=== PATIENT | female | born 1980 | race Caucasian/White ===

== ENCOUNTER 2018-02-07 19:24 | Emergency (ER) | payer MEDICAID ==
[~2018-02-07] VITALS: Ht 160 cm; Wt 61.4 kg
[~2018-02-07 19:24] MED LIST: DSS100 PO; IBUP-2071 PO; PERCT PO; PREN1TAB80 PO
[2018-02-07 19:59] LABS: BASOPHILS % (AUTO) 0.5 % (0.0-2.0); EOSINOPHILS % (AUTO) 1.1 % (1.0-6.0); HEMATOCRIT 29.6 % (36-46); HEMOGLOBIN 9.4 g/dL (12.0-16.0); LYMPHOCYTES # (AUTO) 2.3 K/uL (1.0-4.8); LYMPHOCYTES % (AUTO) 21.1 % (22.0-44.0); MEAN CORPUSCULAR HEMOGLOBIN 22.3 pg (26.0-34.0); MEAN CORPUSCULAR HGB CONC 31.8 G/dL (31.0-37.0); MEAN CORPUSCULAR VOLUME 70 fL (80-100); MONOCYTES # (AUTO) 0.5 K/uL (0.1-1.0); MONOCYTES % (AUTO) 4.3 % (2.0-9.0); NEUTROPHILS # (AUTO) 7.8 K/uL (1.8-7.7); PLATELET COUNT (AUTO) 414 K/uL (150-450); RED BLOOD CELL COUNT(AUTO) 4.24 MIL/uL (4.00-5.20); RED CELL DISTRIBUTION WIDTH 17.2 % (11.5-14.5)
[2018-02-07 20:32] LABS: APPEARANCE,URINE CLOUDY (CLEAR); BILIRUBIN,URINE NEGATIVE (NEGATIVE); GLUCOSE, URINE (UA) 100 mg/dL (NEGATIVE); KETONES,URINE NEGATIVE (NEGATIVE); LEUKOCYTE ESTERASE ,URINE NEGATIVE (NEGATIVE); NITRATE,URINE NEGATIVE (NEGATIVE); OCCULT BLOOD,URINE NEGATIVE (NEGATIVE); PROTEIN,URINE NEGATIVE (NEGATIVE)
[2018-02-07 20:41] LABS: BACTERIA,URINE Few /HPF (None Seen); RBC,URINE 0-2 /HPF (0-2); SQUAMOUS EPITHELIAL CELL,UR Moderate /LPF (None Seen)
[2018-02-07 20:57] VITALS: BP 122/74
[2018-02-07 22:00] LABS: PLATELET MORPHOLOGY COMMENT GIANT PLTS PRESENT
== END 2018-02-07 20:58 | disposition home or self-care (01) ==
LOC: EMS 19:25
DX: R30.0 Dysuria (principal); D64.9 Anemia, unspecified; R10.9 Unspecified abdominal pain; R81 Glycosuria
CPT/HCPCS: 99284

== ENCOUNTER 2019-09-03 10:44 | Emergency (ER) | payer MEDICAID ==
[~2019-09-03] VITALS: Ht 167.6 cm; Wt 63.6 kg
[2019-09-03] MEDS ORDERED: ACETAMINOPHEN 325 MG TABLET PO ONE (13:15)
[2019-09-03] MEDS ORDERED: IBUPROFEN 600 MG TABLET PO ONE (15:15)
[2019-09-03 15:30] VITALS: BP 103/53
== END 2019-09-03 16:20 | disposition home or self-care (01) ==
LOC: EMS 10:48
DX: J11.1 Influenza due to unidentified influenza virus with other respiratory manifestations (principal); M79.10 Myalgia, unspecified site

== ENCOUNTER 2023-01-31 18:56 | Emergency (ER) | payer MEDICAID ==
[~2023-01-31] VITALS: Ht 170.2 cm; Wt 65.0 kg
[2023-01-31 19:27] VITALS: TEMP 98.3
[2023-02-01] VITALS: BP 105/64; PULSE 71; RESP 14
[2023-02-01] MEDS ORDERED: IBUPROFEN 600 MG TABLET PO ONE (00:45)
== END 2023-02-01 01:35 | disposition home or self-care (01) ==
LOC: EMS 19:02
DX: H61.23 Impacted cerumen, bilateral (principal); Z98.890 Other specified postprocedural states
CPT/HCPCS: 99282; Z7502; Z7610